=== PATIENT | male | born 1980 | race Caucasian/White ===

== ENCOUNTER → 2020-02-04 11:27 | Outpatient (BNVA) | payer BC, SELFPAY | PROVIDERS: Visit Provider Registered Nurse | DX: R50.9 Fever, unspecified (principal) | CPT/HCPCS: 87635 ==

== ENCOUNTER 2021-07-14 20:29 | Emergency (ER) | payer BC, SELFPAY ==
[2021-07-14 20:52] VITALS: BP 120/72; PULSE 105; RESP 20; TEMP 38.4; O2SAT 96; BMI 29.4
--- NOTE | 2021-07-14 20:58 | XRR_ITS ---
PROCEDURE INFORMATION: Exam: XR Chest Exam date and time: 07/14/2021 8:58 PM Age: 40 years old Clinical indication: Fever TECHNIQUE: Imaging protocol: XR of the chest. Views: 1 view. COMPARISON: No relevant prior studies available. FINDINGS: Lungs: Right mid lung field airspace infiltrate. Pleural spaces: Unremarkable. No pleural effusion. No pneumothorax. Heart/Mediastinum: Unremarkable. No cardiomegaly. Bones/joints: Unremarkable. XR/XR chest 1V portable [id number] IMPRESSION: Right mid lung field airspace infiltrate.
--- NOTE | 2021-07-14 21:16 | CTR_ITS ---
PROCEDURE INFORMATION: Exam: CT Abdomen And Pelvis With Contrast Exam date and time: 07/14/2021 9:16 PM Age: 40 years old Clinical indication: Abdominal pain; Additional info: Abd pain, nausea TECHNIQUE: Imaging protocol: Computed tomography of the abdomen and pelvis with contrast. Radiation optimization: All CT scans at this facility use at least one of these dose optimization techniques: automated exposure control; mA and/or kV adjustment per patient size (includes targeted exams where dose is matched to clinical indication); or iterative reconstruction. Contrast material: OMNI 350; Contrast volume: 95 ml; Contrast route: INTRAVENOUS (IV); COMPARISON: CR (CHEST, ) 07/14/2021 9:19 PM RADIATION DOSE METRICS: Total DLP (mGy-cm): 1616.99 FINDINGS: Lungs: Right lower lobe pneumonic infiltrate. Liver: Left hepatic lobe subcentimeter cyst. Gallbladder and bile ducts: Normal. No calcified stones. No ductal dilation. Pancreas: Normal. No ductal dilation. Spleen: Spleen mildly enlarged at 13 cm. Adrenal glands: Normal. No mass. Kidneys and ureters: Normal. No hydronephrosis. Stomach and bowel: Prominent fluid in the small bowel without dilation suggestive of an enteritis. Appendix: No evidence of appendicitis. Intraperitoneal space: Unremarkable. No free air. No significant fluid collection. Vasculature: Unremarkable. No abdominal aortic aneurysm. Lymph nodes: Unremarkable. No enlarged lymph nodes. Urinary bladder: Unremarkable as visualized. Reproductive: Unremarkable as visualized. Bones/joints: Unremarkable. No acute fracture. Soft tissues: Unremarkable. CT/CT abdomen pelvis w con* [id number] IMPRESSION: 1. Prominent fluid in the small bowel without dilation suggestive of an enteritis. 2. Left hepatic lobe subcentimeter cyst. 3. Right lower lobe pneumonic infiltrate. 4. Spleen mildly enlarged at 13 cm.
[2021-07-14 22:29] LABS: Basophils % 0.3 %; Eosinophils % 0.3 %; Hematocrit 42.6 % (42.0-52.0); Hemoglobin 14.6 g/dL (11.7-16.6); Lymphocytes # 0.7 10^3/uL (0.8-4.8); Lymphocytes % 24.7 %; Mean Corpuscular HGB Conc 34.3 g/dL (30.0-36.0); Mean Corpuscular Hemoglobin 28.9 pg (28.0-34.0); Mean Corpuscular Volume 84.2 fl (80-94); Mean Platelet Volume 9.7 fL (7.4-10.4); Monocytes # 0.2 10^3/uL (0.2-0.9); Monocytes % 5.5 %; Neutrophils % 68.9 %; Nucleated Red Blood Cells % 0 %; Platelet Count 112 10^3/cmm (130-400); Red Blood Count 5.06 10^6/uL (4.1-5.3); Red Cell Distribution Width 12.5 % (12.1-15.1); White Blood Count 2.9 10^3/uL (4.0-10.0)
[2021-07-14] MEDS: iohexol 350 mg/mL 100 mL Btl IV ×2 (22:31→22:49)
--- NOTE | 2021-07-14 22:35 | CTR_ITS ---
PROCEDURE INFORMATION: Exam: CTA Chest With Contrast Exam date and time: 07/14/2021 10:35 PM Age: 40 years old Clinical indication: Patient HX: Fever covid +; Additional info: SOB TECHNIQUE: Imaging protocol: Computed tomographic angiography of the chest with contrast. 3D rendering (Not supervised by radiologist): MIP and/or 3D reconstructed images were created by the technologist. Radiation optimization: All CT scans at this facility use at least one of these dose optimization techniques: automated exposure control; mA and/or kV adjustment per patient size (includes targeted exams where dose is matched to clinical indication); or iterative reconstruction. Contrast material: OMNI 350; Contrast volume: 68 ml; Contrast route: INTRAVENOUS (IV); COMPARISON: CR (CHEST, ) 07/14/2021 9:19 PM RADIATION DOSE METRICS: Total DLP (mGy-cm): 577.62 FINDINGS: Pulmonary arteries: Normal. No pulmonary emboli. Aorta: Unremarkable. No aortic aneurysm. No aortic dissection. Lungs: Patchy right lung pneumonic infiltrate. Pleural spaces: Unremarkable. No pneumothorax. No pleural effusion. Heart: Unremarkable. No cardiomegaly. No pericardial effusion. Lymph nodes: Several prominent mediastinal lymph nodes measuring up to 10 mm, nonspecific. Bones/joints: Unremarkable. No acute fracture. Soft tissues: Spleen mildly enlarged at 13.[address]/CT angio chest PE protcl [id number] IMPRESSION: 1. Negative for pulmonary embolus. 2. Patchy right lung pneumonic infiltrate. 3. Several prominent mediastinal lymph nodes measuring up to 10 mm, nonspecific. 4. Spleen mildly enlarged at 13.7 mm.
--- NOTE | 2021-07-14 22:40 | W.ED.FEVER ---
HPI - Fever General: Chief Complaint: Fever Stated Complaint: Covid +, fever , abd pain Time Seen by Provider: 07/14/21 21:09 Source: patient Mode of arrival: ambulatory Limitations: no limitations History of Present Illness: HPI Narrative: 40-year-old male states has been having cough congestion body aches fatigue and fever for last 6 to 7 days. He states he also has had a burning sensation in his chest and abdomen with some abdominal pain. States she has had extreme fatigue that is been worsening. He denies any worst improving factors denies any diarrhea. He has been having fevers at home. Patient's not hypoxic has had some exertional dyspnea. Associated symptoms: Reports abdominal pain and chills; Deny chest pain, dysuria or headache(s) Review of Systems Const: Reports: fever(s), chills and body aches Eyes: Denies: blurry vision or eye discomfort ENMT: Denies: throat pain or dental pain Card: Denies: chest pain Resp: Reports: non-productive cough GI: Reports: abdominal pain : Denies: dysuria Musc: Denies: neck pain or back pain Skin/Breast: Denies: rash Neuro: Denies: headache(s) Psych: Denies: depression Phil/Lymph: Denies: easy bruising All/Imm: Denies: urticaria PFSH ED PFSH: Social History Smoking and tobacco status: never smoked Physical Exam Const: COMMON NORMALS: no acute distress, patient oriented x3 and healthy appearing HENMT: COMMON NORMALS: normocephalic and atraumatic HEAD & SCALP: normocephalic and atraumatic Eye: COMMON NORMALS: Equal, round and reactive pupils present and EOMs intact bilaterally PUPIL: Yes Equal, round and reactive pupils present Neck/C-Spine: COMMON NORMALS: full ROM and supple Chest: COMMONS NORMALS: normal inspection of the chest and normal palpation of entire chest wall Resp: COMMON NORMALS: normal respiratory effort, No retractions and No use of accessory muscles AUSCULTATION: rales Cardio: COMMON NORMALS: regular rate, regular rhythm and No murmurs present (Cardio) RATE: regular rate RHYTHM: regular rhythm GI: COMMON NORMALS: Normal to inspection, nondistended, normoactive bowel sounds present, Soft to palpation, non-tender and no masses PALPATION: Yes Soft to palpation Extremity: COMMON NORMALS: normal to inspection and full ROM Neuro: COMMON NORMALS: patient oriented x3, moves all extremities and no focal motor deficits Psych: COMMON NORMALS: mental status grossly normal, Normal thought process present and cooperative THOUGHT PROCESS: Normal thought process present Skin: COMMON NORMALS: no rashes or lesions noted and no wounds GENERAL SKIN EXAM: no rashes or lesions noted Course Vital Signs: Vital signs: Vital Signs Temperature 98.6 F 07/14/21 23:32 Pulse Rate 88 07/14/21 23:32 Respiratory Rate 16 07/14/21 23:32 Blood Pressure 140/81 07/14/21 23:32 Pulse Oximetry 97 07/14/21 23:32 MDM - Fever MDM Narrative: Medical decision making narrative: Patient presents here with fevers found to have a right-sided pneumonia. Patient is well-appearing here oxygen is 98% on room air no signs of pulmonary embolism we will trial outpatient oral antibiotics for start him on doxycycline inform if he has any worsening dyspnea or hypoxia he is to return immediately he understands agrees to plan. Lab Data: Labs: Lab Results 07/14/21 07/14/21 07/14/21 22:22 22:22 22:22 WBC 2.9 10^3/uL L 10^ 3/uL (4.0-10.0) RBC 5.06 10^6/uL 10^6 /uL (4.1-5.3) Hgb 14.6 g/dL g/dL (11.7-16.6) Hct 42.6 % % (42.0-52.0) MCV 84.2 fl fl (80-94) MCH 28.9 pg pg (28.0-34.0) MCHC 34.3 g/dL g/dL (30.0-36.0) RDW 12.5 % % (12.1-15.1) Plt Count 112 10^3/cmm L 10 ^3/cmm (130-400) MPV 9.7 fL fL (7.4-10.4) Neut % (Auto) 68.9 % % Lymph % (Auto) 24.7 % % Ocean % (Auto) 5.5 % % Eos % (Auto) 0.3 % % Baso % (Auto) 0.3 % % Neut # (Auto) 2.00 10^3/uL 10^3 /uL (1.8-7.7) Lymph # (Auto) 0.7 10^3/uL L 10^ 3/uL (0.8-4.8) Ocean # (Auto) 0.2 10^3/uL 10^3/ uL (0.2-0.9) Eos # (Auto) 0.0 10^3/uL 10^3/ uL (0.0-0.8) Baso # (Auto) 0.0 10^3/uL 10^3/ uL (0.0-0.1) Nucleated RBC % (a uto) 0 % % Nucleated RBCs # 0.0 /100WBC /100W BC Sodium 137 mmol/L mmol/L (136-145) Potassium 4.5 mmol/L mmol/L (3.5-5.1) Chloride 100 mmol/L mmol/L (98-107) Carbon Dioxide 25 mmol/L mmol/L (22-29) Anion Gap 16.5 (5-19) BUN 11 mg/dL mg/dL (6-20) Creatinine 1.0 mg/dL mg/dL (0.7-1.2) GFR Calculation 82.3 mL/min L mL/ min (90-130) Glucose 95 mg/dL mg/dL (65-115) Calculated Osmolal ity 283 mOsm/kg L mOs m/kg (285-295) Lactate 1.2 mmol/L mmol/L (0.5-2.2) Calcium 7.7 mg/dL L mg/dL (8.5-10.5) Total Bilirubin 0.3 mg/dL mg/dL (0.15-1.2) AST 33 U/L U/L (0-40) ALT 22 U/L U/L (0-41) Alkaline Phosphata se 55 IU/L IU/L (40-130) Total Protein 6.3 g/dL L g/dL (6.6-8.7) Albumin 3.7 g/dL g/dL (3.5-5.2) Globulin 2.6 g/dL g/dL (1.3-4.6) Lipase 88 U/L H U/L (13-60) Imaging Data^: CT Chest: Attestation: I personally reviewed and interpreted this imaging study as follows: Radiologist's impression: [address] [address] [address] Scan Report Signed Patient: Gilbert Thibodeaux Unit #: [id number] : 1980 Age/Sex: 40 / M ADM Date: 07/14/21 Loc: ER Room/Bed: Attending Dr: Ordering Provider/Ordering MD: Carlo Alex MD Date of Service: 07/14/21 Procedure(s): CT angio chest PE protcl [id number] Accession Number(s): [id number] Report Number: [id number] PROCEDURE INFORMATION: Exam: CTA Chest With Contrast Exam date and time: 07/14/2021 10:35 PM Age: 40 years old Clinical indication: Patient HX: Fever covid +; Additional info: SOB TECHNIQUE: Imaging protocol: Computed tomographic angiography of the chest with contrast. 3D rendering (Not supervised by radiologist): MIP and/or 3D reconstructed images were created by the technologist. Radiation optimization: All CT scans at this facility use at least one of these dose optimization techniques: automated exposure control; mA and/or kV adjustment per patient size (includes targeted exams where dose is matched to clinical indication); or iterative reconstruction. Contrast material: OMNI 350; Contrast volume: 68 ml; Contrast route: INTRAVENOUS (IV); COMPARISON: CR (CHEST, ) 07/14/2021 9:19 PM RADIATION DOSE METRICS: Total DLP (mGy-cm): 577.62 FINDINGS: Pulmonary arteries: Normal. No pulmonary emboli. Aorta: Unremarkable. No aortic aneurysm. No aortic dissection. Lungs: Patchy right lung pneumonic infiltrate. Pleural spaces: Unremarkable. No pneumothorax. No pleural effusion. Heart: Unremarkable. No cardiomegaly. No pericardial effusion. Lymph nodes: Several prominent mediastinal lymph nodes measuring up to 10 mm, nonspecific. Bones/joints: Unremarkable. No acute fracture. Soft tissues: Spleen mildly enlarged at 13.[address]/CT angio chest PE protcl [id number] IMPRESSION: 1. Negative for pulmonary embolus. 2. Patchy right lung pneumonic infiltrate. 3. Several prominent mediastinal lymph nodes measuring up to 10 mm, nonspecific. 4. Spleen mildly enlarged at 13.7 mm. Dictated By: Sony Jarrell MD Signed By: Sony Jarrell MD Signed Date/Time: 07/14/212306 DD/ 34 Discharge Plan Discharge Patient Disposition: Home Clinical Impression: Pneumonia Qualifiers: Pneumonia type: due to unspecified organism Laterality: right Lung location: unspecified part of lung Qualified Code(s): J18.9 - Pneumonia, unspecified organism Condition: Stable Prescriptions: New albuterol sulfate 90 mcg/actuation HFA aerosol inhaler 2 inh INHALATION Q6H PRN (Reason: shortness of breath or wheezing) Qty: 8 RF: 0 ondansetron 4 mg tablet,disintegrating 4 mg PO Q6H PRN (Reason: nausea and vomiting) Qty: 14 RF: 0 doxycycline hyclate 100 mg tablet 100 mg PO BID 7 Days Qty: 14 RF: 0 No Action sodium chloride 0.9 % Parenteral Solution 0.9 % IV ONCE Qty: 1000 RF: 0 ketorolac 30 mg/mL solution 30 mg IM ONCE Qty: 1 RF: 0 lovastatin 10 mg tablet 10 mg PO DAILY RF: 0 Discharge Orders: Discharge ED (Routine); Ordered 07/14/21 Ordered By: Carlo Alex Discharge Diet: Advance as tolerated Discharge Activity: Resume usual activity Patient Instructions: Pneumonia (ED) Coding Level of Care Code ED [employer] Fwd Exam Comprehensive
[2021-07-14 22:49] LABS: Lactate (Lactic Acid level) 1.2 mmol/L (0.5-2.2)
[2021-07-14 22:51] LABS: Alanine Aminotransferase 22 U/L (0-41); Albumin Level 3.7 g/dL (3.5-5.2); Alkaline Phosphatase 55 IU/L (40-130); Blood Urea Nitrogen 11 mg/dL (6-20); Calcium 7.7 mg/dL (8.5-10.5); Carbon Dioxide 25 mmol/L (22-29); Chloride 100 mmol/L (98-107); Globulin 2.6 g/dL (1.3-4.6); Glomerular Filtration Rate 82.3 mL/min (90-130); Glucose 95 mg/dL (65-115); Lipase 88 U/L (13-60); Osmolality Calculated 283 mOsm/kg (285-295); Sodium 137 mmol/L (136-145); Total Bilirubin 0.3 mg/dL (0.15-1.2); Total Protein 6.3 g/dL (6.6-8.7)
[2021-07-14 22:52] LABS: Anion Gap 16.5 (5-19); Aspartate Amino Transferase 33 U/L (0-40); Potassium 4.5 mmol/L (3.5-5.1)
[2021-07-14] MEDS: ondansetron 2 mg/ML SDV 2 mL 4 MG IVP (23:09)
[2021-07-14] MEDS: acetaminophen 325 mg Tablet 650 MG PO (23:09)
[2021-07-14] MEDS: doxycycline 100 mg Tablet PO (23:09)
[2021-07-14] MEDS: sodium chloride 0.9% 1,000 ML 999 ML IV (23:09)
[2021-07-14] MEDS: albuterol 8 gm MDI 2 PUFF INHALATION (23:20)
[2021-07-14 23:24] VITALS: PULSE 97; RESP 16; O2SAT 100
[2021-07-14 23:32] VITALS: BP 140/81; PULSE 88; RESP 16; TEMP 37; O2SAT 97
== END 2021-07-14 23:39 | disposition home or self-care (01) ==
PROVIDERS: Emergency Provider Emergency Medicine
DX: J18.9 Pneumonia, unspecified organism (principal)
CPT/HCPCS: 71045; 71275; 74177; 80053; 83605; 83690; 85025; 87040; 94640; 96361; 96374; 99284; J2405; J3535; J7030; Q9967